=== PATIENT | female | born 1990 | race Caucasian/White ===

== ENCOUNTER 2017-07-22 15:40 | Emergency (ER) | payer SELFPAY ==
[~2017-07-22] VITALS: Ht 162.6 cm; Wt 77.1 kg
[2017-07-22 16:54] LABS: Urine Bilirubin Negative (Negative); Urine Blood 2+ /uL (Negative); Urine Color Yellow (Yellow); Urine Glucose Normal (Normal); Urine Ketone Negative (Negative); Urine Mucus FEW (None Seen); Urine Nitrite Negative (Negative); Urine RBC 49 /hpf (0 - 4); Urine Squamous Epithelial Cell FEW /hpf (<5); Urine Urobilinogen Normal (Negative); Urine pH 6.5 (5.0-8.0)
[2017-07-22 17:10] VITALS: BP 129/79
== END 2017-07-22 17:41 | disposition home or self-care (01) ==
LOC: ER 15:49
DX: N39.0 Urinary tract infection, site not specified (principal); Z88.0 Allergy status to penicillin
CPT/HCPCS: 81001; 81025

== ENCOUNTER 2017-07-29 15:31 | Emergency (ER) | payer SELFPAY ==
[~2017-07-29] VITALS: Ht 162.6 cm; Wt 74.4 kg
[2017-07-29 15:44] VITALS: BP 141/95
== END 2017-07-29 17:29 | disposition home or self-care (01) ==
LOC: ER 15:37
DX: H60.391 Other infective otitis externa, right ear (principal); Z88.0 Allergy status to penicillin; Z88.1 Allergy status to other antibiotic agents

== ENCOUNTER 2017-10-24 10:22 | Emergency (ER) | payer SELFPAY ==
[~2017-10-24] VITALS: Ht 162.6 cm; Wt 74.8 kg
[2017-10-24 11:25] VITALS: BP 136/92
[2017-10-24] MEDS ORDERED: KETOROLAC TROMETH 60MG/2ML VIAL IM ONE (12:15)
== END 2017-10-24 13:00 | disposition home or self-care (01) ==
LOC: ER 10:22
DX: N83.00 Follicular cyst of ovary, unspecified side (principal); Z88.0 Allergy status to penicillin; Z88.1 Allergy status to other antibiotic agents
CPT/HCPCS: 76856; 81002; 96372; 99284; J1885

== ENCOUNTER 2017-11-07 19:07 | Emergency (ER) | payer SELFPAY ==
[~2017-11-07] VITALS: Ht 162.6 cm; Wt 71.7 kg
[2017-11-07 19:35] VITALS: BP 142/96
[2017-11-07] MEDS ORDERED: cefTRIAXone SOD 1,000 MG VL IM ONE (22:45)
== END 2017-11-07 23:10 | disposition home or self-care (01) ==
LOC: ER 19:07
DX: K04.7 Periapical abscess without sinus (principal); B99.9 Unspecified infectious disease; Z88.0 Allergy status to penicillin; Z88.1 Allergy status to other antibiotic agents
CPT/HCPCS: 96372; 99283; J0696

== ENCOUNTER 2017-11-14 15:15 | Emergency (ER) | payer SELFPAY ==
[~2017-11-14] VITALS: Ht 162.6 cm; Wt 71.7 kg
[2017-11-14 15:37] VITALS: BP 152/98
== END 2017-11-14 17:24 | disposition home or self-care (01) ==
LOC: ER 15:17
DX: N39.0 Urinary tract infection, site not specified (principal); N76.0 Acute vaginitis; Z88.0 Allergy status to penicillin; Z88.1 Allergy status to other antibiotic agents; Z88.2 Allergy status to sulfonamides
CPT/HCPCS: 81002

== ENCOUNTER 2018-01-20 20:40 | Emergency (ER) | payer MEDICAID ==
[~2018-01-20] VITALS: Ht 162.6 cm; Wt 74.8 kg
[2018-01-20 21:31] VITALS: BP 136/71
== END 2018-01-20 22:33 | disposition home or self-care (01) ==
LOC: ER 20:40
DX: H92.01 Otalgia, right ear (principal); Z88.1 Allergy status to other antibiotic agents; Z88.0 Allergy status to penicillin

== ENCOUNTER 2021-01-01 21:19 | Emergency (ER) | payer MEDICAID ==
[~2021-01-01] VITALS: Ht 162.6 cm; Wt 74.8 kg
[2021-01-01 23:45] LABS: INR 1.05 (0.9-1.15); Partial Thromboplastin Time 30.1 sec (23.0-31.2)
[2021-01-02 00:21] LABS: Basophils # (auto) 0 10 ^3/uL (0-0.2); Basophils % (auto) 0.4 % (0.0-2.0); Eosinophils # (auto) 0.1 10 ^3/uL (0-0.8); Eosinophils % (auto) 0.6 % (0.0-7.0); Hematocrit 39.1 % (36.0-46.0); Hemoglobin 13.2 g/dL (12.2-16.2); Lymphocytes # (auto) 1.3 10 ^3/uL (0.4-5.4); Lymphocytes % (auto) 12.1 % (10.0-50.0); Mean Corpuscular Hemoglobin 31.2 pg (28.0-32.0); Mean Corpuscular Hgb Conc. 33.6 g/dL (32.0-36.0); Mean Corpuscular Volume 92.8 fL (80.0-100.0); Monocytes # (auto) 0.8 10 ^3/uL (0-1.3); Monocytes % (auto) 7.5 % (0.0-12.0); Neutrophils # (auto) 8.7 10 ^3/uL (1.6-8.6); Neutrophils % (auto) 79.4 % (37.0-80.0); Platelet Count (auto) 204 10^3/uL (140-450); Red Blood Cells 4.21 10^6/uL (4.0-5.20); Red Cell Distribution Width 12.8 % (11.8-14.3)
[2021-01-02 03:51] LABS: INR 1.05 (0.9-1.15); Partial Thromboplastin Time 29.2 sec (23.0-31.2)
[2021-01-02 04:13] VITALS: BP 118/74
== END 2021-01-02 04:17 | disposition home or self-care (01) ==
LOC: EDSEX 21:19 → EDBD 21:19 → ER 21:24
DX: T63.091A Toxic effect of venom of other snake, accidental (unintentional), initial encounter (principal); Z88.1 Allergy status to other antibiotic agents; Z88.0 Allergy status to penicillin; Y92.89 Other specified places as the place of occurrence of the external cause
CPT/HCPCS: 36415; 82550; 85025; 85384; 85610; 85730